=== PATIENT | female | born 1980 | race Two or more races ===

== ENCOUNTER 2023-04-03 15:13 | Emergency (ER) | payer BC, OTHER ==
[~2023-04-03] VITALS: Ht 167.6 cm; Wt 139.9 kg
[2023-04-03 15:27] VITALS: BP 155/96; PULSE 94; RESP 19; TEMP 98.3; O2SAT 94
[2023-04-03] MEDS ORDERED: KETOROLAC TROMETH 60MG/2ML VIAL IM ONE (19:00)
[2023-04-03] MEDS ORDERED: NAP500T PO (19:03)
== END 2023-04-03 19:24 | disposition home or self-care (01) ==
LOC: ER 15:13
DX: M47.892 Other spondylosis, cervical region (principal); G89.29 Other chronic pain; M54.2 Cervicalgia; I10 Essential (primary) hypertension; E78.5 Hyperlipidemia, unspecified; Z90.89 Acquired absence of other organs
CPT/HCPCS: 72040; 96372; 99283; J1885